=== PATIENT | male | born 1965 | race Caucasian/White ===

== ENCOUNTER → 2017-05-18 | Outpatient (CLI) | payer OTHER ==
[~2017-05-18] VITALS: Ht 189.2 cm; Wt 92.1 kg
[~2017-05-18] MED LIST: ALEVE220 MG PO; ASPIRIN81 M2 PO; DILAUDID2 MG PO; HYDROCHLOROTHIA25 MG PO; HYGROTON25 MG PO; LISINOPRIL20 MG PO; LOSARTAN POTAS100 MG PO; METRONIDAZOLE500 MG PO; ZYRTEC10 MG PO
== END | disposition home or self-care (01) ==
LOC: AMB 07:45
PROC: 0DBL8ZX Excision of Transverse Colon, Via Natural or Artificial Opening Endoscopic, Diagnostic (ICD-10-PCS; principal; 2017-05-18)
DX: Z12.11 Encounter for screening for malignant neoplasm of colon (principal); D12.3 Benign neoplasm of transverse colon; K57.30 Diverticulosis of large intestine without perforation or abscess without bleeding; K64.8 Other hemorrhoids; K64.4 Residual hemorrhoidal skin tags; K62.89 Other specified diseases of anus and rectum; I10 Essential (primary) hypertension; N28.9 Disorder of kidney and ureter, unspecified; Z90.49 Acquired absence of other specified parts of digestive tract; Z80.3 Family history of malignant neoplasm of breast; Z82.49 Family history of ischemic heart disease and other diseases of the circulatory system
CPT/HCPCS: 88305